=== PATIENT | male | born 1985 | race African-American/Black ===

== ENCOUNTER 2018-06-05 14:57 | Inpatient (IN) | payer OTHER ==
[2018-06-05 17:39] VITALS: BMI 24.2
--- NOTE | 2018-06-05 18:56 | HP ---
CIWA Score - Admission Criteria [facility]ASAS Guidelines: Admission for Medically Managed Detox: Requires at least one of the followin. CIWA greater than 12 2. Seizures within the past 24 hours 3. Delirium tremens within the past 24 hours 4. Hallucinations within the past 24 hours 5. Acute intervention needed for co occurring medical disorder 6. Acute intervention needed for co occurring psychiatric disorder 7. Severe withdrawal that cannot be handled at a lower level of care (continued vomiting, continued diarrhea, abnormal vital signs) requiring intravenous medication and/or fluids 8. Admission ROS S - HPI Allergies/Adverse Reactions: Allergies Allergy/AdvReac Type Severity Reaction Status Date / Time No Known Allergies Allergy Verified 06/05/18 18:27 History of Present Illness: patient here requesting rehab from cocaine use , occasional cannabis , occasional ETOH , cocaine use since age 23 , current use 2-3 bags x 2-3 x/week via inhalation denies ivdu , most recent use yesterday , tobacco occasional use , has decided to seek rehab due to ongoing use affecting relationship w/ SO . first treatment episode, does not participate in outpatient programs. george 0.000 utox + AVELINO , + MET PMHX : HIV dx 2006 ( RF =ST ) [facility] [address] on [place] and [place] PShx : denies psych : anxiety SHx: lives w/ partner , on SSD for HIV since age 25 . Exam Limitations: No Limitations - Ebola screening Have you traveled outside of the country in the last 21 days: No Have you had contact with anyone from an Ebola affected area: No Have you been sick,other than usual withdrawal symptoms: No - Review of Systems Constitutional: No Symptoms Reported EENT: reports: No Symptoms Reported Respiratory: reports: No Symptoms reported Cardiac: reports: No Symptoms Reported GI: reports: Indigestion : reports: No Symptoms Reported Musculoskeletal: reports: No Symptoms Reported Integumentary: reports: No Symptoms Reported Neuro: reports: No Symptoms reported Endocrine: reports: No Symptoms Reported Psychiatric: reports: Orientated x3, Anxious Patient History - Patient Medical History Hx Asthma: No Hx Chronic Obstructive Pulmonary Disease (COPD): No Hx Cardiac Disorders: No Hx Hypertension: No Hx Seizures: No Hx Diabetes: No Hx Gastrointestinal Disorders: No Hx Genitourinary Disorders: No Hx Sexually Transmitted Disorders: No Hx Renal Disease (ESRD): No Hx Depression: No Hx Suicide Attempt: No Hx Schizophrenia: No - Patient Surgical History Past Surgical History: No Hx Neurologic Surgery: No Hx Cataract Extraction: No Hx Cardiac Surgery: No Hx Lung Surgery: No Hx Breast Surgery: No Hx Breast Biopsy: No Hx Abdominal Surgery: No Hx Appendectomy: No Hx Cholecystectomy: No Hx Genitourinary Surgery: No Hx Section: No Hx Orthopedic Surgery: No Anesthesia Reaction: No - PPD History Previous Implant?: Yes Documented Results: Negative w/o proof Implanted On Prior [facility] Admission?: No - Smoking Cessation Smoking history: Current some day smoker Have you smoked in the past 12 months: Yes Aproximately how many cigarettes per day: 2 Hx Chewing Tobacco Use: No Initiated information on smoking cessation: No - Substances Abused Cocaine Route: Inhalation Frequency: 3-6 times per week Amount used: $50 Age of first use: 23 Date of Last Use: 06/04/18 Family Disease History - Family Disease History Family Disease History: Other: Grandparent (FHX : DM, HTN ) Admission Physical Exam [facility] - Vital Signs Vital Signs: Vital Signs - 24 hr 06/05/18 17:32 Temperature 99.0 F Pulse Rate 84 Respiratory 18 Rate Blood Pressure 128/72 - Physical General Appearance: Yes: Within Normal Limits HEENTM: Yes: Within Normal Limits Respiratory: Yes: Chest Non-Tender, Lungs Clear, Normal Breath Sounds Neck: Yes: No masses,lesions,Nodules, Trachea in good position Cardiology: Yes: Regular Rhythm, Regular Rate, S1, S2 Abdominal: Yes: Normal Bowel Sounds, Non Tender, Soft Genitourinary: Yes: Within Normal Limits Back: Yes: Normal Inspection Musculoskeletal: Yes: full range of Motion, Gait Steady Extremities: Yes: Normal Capillary Refill, Normal Inspection Neurological: Yes: Fully Oriented, Alert Integumentary: Yes: Normal Color, Dry, Warm - Diagnostic (1) Cocaine dependence Current Visit: Yes Status: Chronic Qualifiers: Substance use status: uncomplicated Qualified Code(s): F14.20 - Cocaine dependence, uncomplicated [facility] Breath Alcohol Content Breath Alcohol Content: 0 Urine Drug Screen - Results Drug Screen Negative: No Urine Drug Screen Results: AVELINO-Cocaine, MET-Methamphetamine Inpatient Rehab Admission - Initial Determination Are CD services needed?: Yes Free of communicable disease: Yes Not in need of hospitalization: No - Rehab Admission Criteria Previous failed treatment: No Poor recovery environment: No Comorbidities: No Lacks judgement: Yes Patient is meeting Inpatient Rehab admission criteria:: Yes (as per insurance authorization )
[2018-06-05] MEDS ORDERED: ACETAMINOPHEN 325 MG TABLET (FP) PO PRN (19:10)
[2018-06-05] MEDS ORDERED: hydrOXYzine PAMOATE 25 MG CAPSULE (FP) PO PRN (19:10)
[2018-06-05] MEDS ORDERED: MAGNESIUM CITRATE 300 ML BOTTLE PO PRN (19:10)
[2018-06-05] MEDS ORDERED: MAGNESIUM HYDROX 2400MG/30ML ORAL SUSPENSION 30 ML CUP PO PRN (19:10)
[2018-06-05] MEDS ORDERED: P-EPHED 60MG/TRIPROLIDI 2.5MG TABLET PO PRN (19:10)
[2018-06-05] MEDS ORDERED: LOPERAMIDE HCL 2 MG CAPSULE PO PRN (19:10)
[2018-06-05] MEDS ORDERED: MELATONIN 5 MG TABLETS PO PRN (22:00)
[2018-06-05] MEDS ORDERED: TUBERCULIN PPD 5 TU/0.1ML VIAL ID ONE (22:26)
[2018-06-05] MEDS: THIAMINE HCL 100 MG TABLET (FP) PO SCH (22:31)
[2018-06-06 04:04] LABS: URINE APPEARANCE TURBID; URINE BILIRUBIN NEGATIVE (<2.0 mg/dL); URINE COLOR YELLOW; URINE GLUCOSE (UA) NEGATIVE (NEGATIVE); URINE KETONE TRACE (NEGATIVE); URINE LEUK ESTERASE NEGATIVE (NEGATIVE); URINE NITRITE NEGATIVE (NEGATIVE); URINE PROTEIN 1+ (NEGATIVE)
[2018-06-06 04:41] LABS: URINE MUCUS FEW; YEAST MANY
[2018-06-06] MEDS: PRENATAL VITAMINS W/ FOLIC ACID TABLET (FP) PO SCH (11:10)
[2018-06-06] MEDS: THIAMINE HCL 100 MG TABLET (FP) PO SCH (21:08)
--- NOTE | 2018-06-07 09:23 | HP ---
Psychiatrist Admission - Data Admission source: 06/07/18 Identifying data: Patient is a 32 year old single male, without children, unemployed (states he's disabled), domiciled, and is supported by public assistance. This is patient's first admission to 3 rehab. Patient admitted to 3 for cocaine dependence. Medical History: HIV Psychiatric History: Patient denies h/o psychiatric hospitalization. Patient reports seeing an outpatient psychiatrist last year for a psychiatric evaluation in order to complete a housing application. Patient denies h/o suicide attempt. Patient reports stable mood and denies psychotic symptoms. Patient reports history of anxiety and is prescribed vistaril 50mg by his PCP. Physical/Sexual Abuse/Trauma History: denies. Vital Signs: Vital Signs - 24 hr 06/07/18 06/07/18 06/07/18 00:30 03:30 06:52 Temperature 97.9 F Pulse Rate 76 Respiratory 18 18 Rate Blood Pressure 132/76 Allergies/Adverse Reactions: Allergies Allergy/AdvReac Type Severity Reaction Status Date / Time No Known Allergies Allergy Verified 06/05/18 18:27 Date of last physical exam: 06/07/18 Concur with the findings of this exam: Yes - Substance Abuse/Tx History Hx Alcohol Use: Yes ("sometimes") Hx Substance Use: Yes (Cocaine- $50 daily Marijuana- $10 weekly) Substance Use Type: Cocaine, Marijuana Hx Substance Use Treatment: No (This is patient's first admission to rehab) Mental Status Exam - Mental Status Exam Alert and Oriented to: Time, Place, Person Cognitive Function: Good Patient Appearance: Well Groomed Mood: Euthymic Affect: Appropriate, Mood Congruent Patient Behavior: Appropriate, Cooperative Speech Pattern: Clear, Appropriate Voice Loudness: Normal Thought Process: Intact, Goal Oriented Thought Disorder: Not Present Hallucinations: Denies Suicidal Ideation: Denies Homicidal Ideation: Denies Insight/Judgement: Poor Sleep: Fair Appetite: Fair Muscle strength/Tone: Normal Gait/Station: Normal Psychiatric Findings - Problem List ([place] 1, 2,3) (1) Cocaine dependence Current Visit: Yes Status: Chronic Qualifiers: Substance use status: uncomplicated Qualified Code(s): F14.20 - Cocaine dependence, uncomplicated - Initial Treatment Plan Initial Treatment Plan: Psychoeducation provided. Detoxification in progress. Will order Vistaril 50mg q4h for anxiety. Benefits and side effects discussed. Verbal consent given.
[2018-06-07] MEDS: PRENATAL VITAMINS W/ FOLIC ACID TABLET (FP) PO SCH (10:26)
[2018-06-07] MEDS: hydrOXYzine PAMOATE 50 MG CAPSULE (FP) PO PRN ×2 (14:17→20:28)
[2018-06-07] MEDS: THIAMINE HCL 100 MG TABLET (FP) PO SCH (21:37)
[2018-06-08 10:30] LABS: BASO % 0.5 % (0-2.0); EOS % 4.6 % (0-4.5); HEMATOCRIT 38.6 % (35.4-49); HEMOGLOBIN 13.1 GM/dL (11.7-16.9); LYMPH % 32.1 % (8-40); MCH 28.2 pg (25.7-33.7); MCHC 33.9 g/dl (32.0-35.9); MEAN CELL VOLUME 83.2 fl (80-96); MEAN PLT VOLUME 8.2 fl (7.5-11.1); NEUT % 50.8 % (42.8-82.8); PLATELET COUNT 284 K/MM3 (134-434); RBC 4.64 M/mm3 (4.00-5.60); RDW 14.9 % (11.9-15.9)
[2018-06-08] MEDS: PRENATAL VITAMINS W/ FOLIC ACID TABLET (FP) PO SCH (10:40)
[2018-06-08] MEDS: hydrOXYzine PAMOATE 50 MG CAPSULE (FP) PO PRN ×3 (10:41→21:28)
[2018-06-08 11:00] LABS: ALBUMIN 3.2 g/dl (3.4-5.0); ALK PHOS 73 U/L (45-117); ANION GAP 5 MMOL/L (8-16); BILIRUBIN,TOTAL 0.3 mg/dL (0.2-1); BLOOD UREA NITROGEN 9 mg/dL (7-18); CHLORIDE 104 mmol/L (98-107); CO2 29 mmol/L (21-32); CREATININE 1.1 mg/dL (0.55-1.3); GLUCOSE,RANDOM 97 mg/dL (74-106); POTASSIUM 4.1 mmol/L (3.5-5.1); SGOT/AST 135 U/L (15-37); SGPT/ALT 171 U/L (13-61); SODIUM 137 mmol/L (136-145); TOT PROT 6.2 g/dl (6.4-8.2)
[2018-06-08] MEDS: MENTHOL/PHENOL 1 EACH UD MM PRN (19:19)
[2018-06-08] MEDS: MAG HYDROX/AL HYDROX/SIMETH 30 ML UNIT-DOSE CUP PO PRN (21:27)
[2018-06-08] MEDS: guaiFENesin/D-METHORPHAN HB 10 ML UNIT-DOSE CUPS PO PRN (21:27)
[2018-06-08] MEDS: THIAMINE HCL 100 MG TABLET (FP) PO SCH (21:28)
[2018-06-09] MEDS: IBUPROFEN 400 MG TABLET (FP) PO PRN (02:39)
[2018-06-09] MEDS: guaiFENesin/D-METHORPHAN HB 10 ML UNIT-DOSE CUPS PO PRN (09:02)
[2018-06-09] MEDS: MENTHOL/PHENOL 1 EACH UD MM PRN ×3 (09:03→18:44)
[2018-06-09] MEDS: PRENATAL VITAMINS W/ FOLIC ACID TABLET (FP) PO SCH (10:08)
[2018-06-09] MEDS: MAG HYDROX/AL HYDROX/SIMETH 30 ML UNIT-DOSE CUP PO PRN (10:09)
[2018-06-09] MEDS: hydrOXYzine PAMOATE 50 MG CAPSULE (FP) PO PRN ×3 (10:10→18:43)
[2018-06-09] MEDS: NICOTINE POLACRILEX 2 MG GUM BUC PRN (18:54)
[2018-06-09] MEDS: THIAMINE HCL 100 MG TABLET (FP) PO SCH (21:35)
[2018-06-10] MEDS: MENTHOL/PHENOL 1 EACH UD MM PRN ×4 (02:46→21:54)
[2018-06-10] MEDS: IBUPROFEN 400 MG TABLET (FP) PO PRN (02:46)
[2018-06-10] MEDS: hydrOXYzine PAMOATE 50 MG CAPSULE (FP) PO PRN ×5 (02:46→21:52)
[2018-06-10] MEDS: PRENATAL VITAMINS W/ FOLIC ACID TABLET (FP) PO SCH (09:09)
[2018-06-10] MEDS: NICOTINE POLACRILEX 2 MG GUM BUC PRN ×2 (11:24→21:54)
[2018-06-10] MEDS: MAG HYDROX/AL HYDROX/SIMETH 30 ML UNIT-DOSE CUP PO PRN ×2 (13:20→21:51)
[2018-06-10] MEDS: THIAMINE HCL 100 MG TABLET (FP) PO SCH (21:52)
[2018-06-11] MEDS: PRENATAL VITAMINS W/ FOLIC ACID TABLET (FP) PO SCH (10:48)
[2018-06-11] MEDS: guaiFENesin/D-METHORPHAN HB 10 ML UNIT-DOSE CUPS PO PRN (10:50)
[2018-06-11] MEDS: MENTHOL/PHENOL 1 EACH UD MM PRN ×2 (10:50→19:04)
--- NOTE | 2018-06-11 13:38 | PN ---
[facility] Progress Note Note: PT REPORTS HE HAS BEEN TAKEN HIS MEDICATION FOR HIV TILL THE DAY HE ARRIVED TO THIS PROGRAM AND NEEDS HIS MED REORDERED. PT IS VERY ANGRY AND WANTS HIS MEDICATIONS STATING HE HAS THEM IN HIS PILL BOX IN SECURITY. THIS CASING TRIMMER SPOKE WITH PT'S PHARMACIST HUNTER AT [facility] WHO STATES THAT PT HAS BEEN PICKING UP HIS MEDS REGULARLY FROM THEM, LAST POSTING WAS 05/18/18 AND GAVE THE PT'S PMD DR. WELCH AT [address] [place] [address]. PH: [phone]. Vital Signs - 24 hr 06/11/18 06/11/18 00:30 03:30 Respiratory 18 18 Rate PLAN:RESTART PT ON ANTIRETROVIRAL MEDS PER HOME MEDS LIST AFTER VERIFICATION AND CLEARANCE WITH [facility] PHARMACIST. FOLLOW UP WITH PMD AFTER REHAB FOR MEDICAL MANAGEMENT. INCREASE PO FLUIDS. ADDENDUM:UNABLE TO RESTART MEDS ABOVE. PT WENT DOWN TO SECURITY OFFICE WITH THE CODING TECH, FAY TO GET HIS MEDICATIONS ONLY TO TELL HER AND SECURITY HE IS NOT GETTING ANYTHING FROM HIS PROPERTY AND "JUST WANTED TO WASTE YOUR TIME SINCE YOU WASTED MY TIME". PT RETURNED TO THE UNIT WITHOUT HIS MEDS. PT WILL FOLLOW UP WITH HIS PMD UPON DISCHARGE.
--- NOTE | 2018-06-11 15:11 | PN ---
Psychiatric Progress Note Vital Signs: Vital Signs Period Temp Pulse Resp BP Sys/Colindres Pulse Ox Last 24 Hr Date of Session: 06/11/18 Chief Complaint:: Discharge Note HPI: Patient addressing Cocaine Dependence comorbid with Nicotine Dependence ROS: HIV+ Current Medications: Active Medications Generic Name Dose Route Start Last Admin Trade Name Freq PRN Reason Stop Dose Admin Acetaminophen 650 mg 06/05/18 19:10 Tylenol - PO Q4H PRN FEVER Al Hydroxide/Mg Hydroxide 30 ml 06/05/18 19:10 06/10/18 21:51 Mylanta Oral Suspension - PO 30 ml Q6H PRN Administration DYSPEPSIA Eucalyptus/Menthol/Phenol/Sorbitol 1 each 06/05/18 19:10 06/11/18 10:50 Cepastat Lozenge - MM 1 each Q4H PRN Administration SORE THROAT Guaifenesin 10 ml 06/05/18 19:10 06/11/18 10:50 Robitussin Dm - PO 10 ml Q6H PRN Administration COUGH Hydroxyzine Pamoate 50 mg 06/07/18 19:10 06/10/18 21:52 Vistaril - PO 50 mg Q4H PRN Administration ANXIETY Ibuprofen 400 mg 06/05/18 19:10 06/10/18 02:46 Motrin - PO 400 mg Q6H PRN Administration Pain level 4-6 Loperamide HCl 4 mg 06/05/18 19:10 Imodium - PO Q6H PRN DIARRHEA Magnesium Citrate 300 ml 06/05/18 19:10 Citroma - PO Q48H PRN CONSTIPATION Magnesium Hydroxide 30 ml 06/05/18 19:10 Milk Of Magnesia - PO DAILY PRN CONSTIPATION Melatonin 5 mg 06/05/18 22:00 06/06/18 21:08 Melatonin PO 5 mg HS PRN Administration INSOMNIA Nicotine Polacrilex 2 mg 06/09/18 17:59 06/10/18 21:54 Nicorette Gum - BUC 2 mg Q2H PRN Administration NICOTINE REPLACEMENT RX Multivit/Folic Acid/Iron 1 tab 06/06/18 10:00 06/11/18 10:48 Vitamins (Sjr) - PO 1 tab DAILY JOEL Administration Pseudoephedrine/Triprolidine 1 combo 06/05/18 19:10 Actifed - PO TID PRN NASAL CONGESTION Thiamine HCl 100 mg 06/05/18 22:00 06/10/18 21:52 Vitamin B1 - PO 100 mg HS JOEL Administration Current Side Effect: No Lab tests ordered: No Lab tests reviewed: Yes Provider note:: Patient will complete this program on 06/12/18. He has met his treatment goals and will continue to address his issues in outpatient treatment at [facility] at [address] [place] [address]. 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 He is stable for discharge on 06/12/18. Total face to face time:: 35 Mental Status Exam - Mental Status Exam Alert and Oriented to: Time, Place, Person Cognitive Function: Fair Patient Appearance: Well Groomed Mood: Hopeful, Euthymic Affect: Appropriate Patient Behavior: Cooperative Speech Pattern: Clear Voice Loudness: Normal Thought Process: Intact, Goal Oriented Thought Disorder: Not Present Hallucinations: Denies Suicidal Ideation: Denies Homicidal Ideation: Denies Insight/Judgement: Fair Sleep: Fair Appetite: Good Muscle strength/Tone: Normal Gait/Station: Normal Psychiatric Treatment Plan - Problem List (1) Cocaine dependence Qualifiers: Substance use status: uncomplicated Qualified Code(s): F14.20 - Cocaine dependence, uncomplicated (3) HIV (human immunodeficiency virus infection) Initial treatment plan: Patient will be discharged tomorrow and referred to [facility] for outpatient treatment
[2018-06-11] MEDS: hydrOXYzine PAMOATE 50 MG CAPSULE (FP) PO PRN ×2 (17:02→21:29)
[2018-06-11] MEDS: IBUPROFEN 400 MG TABLET (FP) PO PRN (19:02)
[2018-06-11] MEDS: THIAMINE HCL 100 MG TABLET (FP) PO SCH (21:28)
[2018-06-11] MEDS: MAG HYDROX/AL HYDROX/SIMETH 30 ML UNIT-DOSE CUP PO PRN (21:29)
[2018-06-11] MEDS: NICOTINE POLACRILEX 2 MG GUM BUC PRN (21:31)
[2018-06-12 06:55] VITALS: BP 141/61; PULSE 67; TEMP 98
== END 2018-06-12 08:59 | disposition home or self-care (01) | DRG 895 ==
LOC: YASAS 14:57 → Y3W 19:46
PROVIDERS: ADMIT Psychiatry & Neurology Psychiatry; ATTEND Psychiatry & Neurology Psychiatry
PROC: HZ42ZZZ Group Counseling for Substance Abuse Treatment, Cognitive-Behavioral (ICD-10-PCS; principal; 2018-06-05)
DX: F14.20 Cocaine dependence, uncomplicated (principal); F17.210 Nicotine dependence, cigarettes, uncomplicated; Z21 Asymptomatic human immunodeficiency virus [HIV] infection status
CPT/HCPCS: 36415; 80053; 81003; 81015; 85025; 86593